=== PATIENT | male | born 1955 | race Caucasian/White ===

== ENCOUNTER 2024-08-24 07:31 | Day surgery (SDC) | payer MEDICARE, SELFPAY ==
[2024-08-24 08:14] VITALS: BP 153/80; PULSE 75; RESP 12; TEMP 36.1; O2SAT 94
--- NOTE | 2024-08-24 08:57 | PM.HP.1 ---
History of Present Illness History of Present Illness Date Patient Seen: 08/24/24 Time Patient Seen: 08:58 Chief complaint: Colonoscopy Narrative: 68-year-old male here for screening colonoscopy. Last colonoscopy 10 years ago normal. No family history of colon cancer. No abdominal concerns. [facility] Family History (Updated 02/06/17 @ 00:00 by Conversion Provider) Brother Testicular cancer Brother Prostate cancer Father Age: 97 Cancer Mother Hypertension Stroke Social History Smoking Status: Never smoker alcohol intake: current Meds Home Medications and Allergies Home Medications Medication Instructions Recorded Confirmed Type Fish Oil 1,000 mg PO QDAY ##2 08/16/11 08/24/24 History MULTIVITAMIN (MULTIPLE VITAMINS) 1 tab PO QDAY ##0 08/16/11 08/24/24 History sodium,potassium,mag sulfates 17.5 See Rx Instructions PO .COMPLEX 07/16/24 Rx gram-3.13 gram-1.6 gram oral soln #354 mL (Suprep Bowel Prep Kit) lisinopril 20 mg tablet 20 mg PO DAILY 08/24/24 08/24/24 History Allergies Allergy/AdvReac Type Severity Reaction Status Date / Time No Known Allergies Allergy Uncoded 08/24/24 08:07 Exam Vital Signs (past 8 hours): - 08/24/24 08:14 Temperature 96.9 F L Pulse Rate 75 Respiratory Rate 12 Blood Pressure 153/80 H Pulse Oximetry 94 Oxygen Delivery Method Room Air Oxygen Delivery Method Room Air Narrative Exam Narrative: General adult man alert oriented no acute distress Chest nonlabored respiration Extremities warm well perfused Assessment & Plan Assessment & Plan narrative: The patient requires colorectal screening and colonoscopy is recommended. Technical details were discussed. Risks, benefits, alternatives explained. Risks including but not limited to myocardial infarction, aspiration, bleeding, pain, missed lesion, incomplete examination, need for further radiographic studies, intestinal injury, and need for major abdominal surgery were discussed. All questions were answered to their satisfaction, and they are in agreement with this plan. Time-Based Coding :: [TOTAL MINUTES] spent with patient and on the chart (including review of chart, obtaining history, exam, reviewing outside data, placing orders, documenting exam and treatment plan, and counseling patient) on [DATE].
[2024-08-24 09:33] VITALS: BP 113/85; PULSE 84; RESP 18; TEMP 36.4; O2SAT 97
--- NOTE | 2024-08-24 09:34 | P.OP.COLON_ITS ---
Operative Date/Time/Diagnoses Date of procedure: 08/24/24 Time of procedure: 09:34 Pre-op diagnosis: Colorectal screening Procedure & Clinicians Study performed: Screening colonoscopy Same procedure as scheduled: Yes Indications: Colorectal screening Surgeon: Jas Zhou Procedure Notes Procedure in detail: The history and physical was performed/updated and the patient is ASA class is 2. The procedure was discussed in detail with the patient. Potential risks co mplications including infection, bleeding, missed diagnosis, perforation, need for surgery, and were explained. Their questions were answered and informed consent was obtained. Patient was brought to the procedure room and placed standard monitoring equipment. The patient's vital signs were monitored continuously throughout the entire procedure. Prior to starting time-out was performed. The patient was placed in the left lateral recumbent position. Procedural sedation was administered by anesthesia. Examination began with a thorough inspection of the perianal area there was no evidence of fissures, fistulae, external hemorrhoids or cutaneous malignancy. The colonoscopy scope was then placed into the anal canal and was advanced to the cecum, which was identified by the ileocecal valve, the appendiceal orifice and the confluence of the taenia. The scope was then slowly withdrawn examining colon thoroughly in all directions, irrigating it of any residual stool. The scope was retroflexed within the rectum The patient tolerated the procedure well. They will be discharged once criteria are met. The prep was of good/excellent quality. The withdrawl time was 7 minutes. FINDINGS * Internal hemorrhoids otherwise unremarkable colonoscopy Specimen(s): none sent Impression: Hemorrhoids Post-procedure Recommendations: High fiber diet Plan for aftercare: No need for further colonoscopy unless symptomatic Disposition: same day surgery
[2024-08-24 09:36] VITALS: BP 129/90; PULSE 77; RESP 16; O2SAT 98
[2024-08-24 09:41] VITALS: BP 113/82; PULSE 73; RESP 15; TEMP 36.6; O2SAT 98
[2024-08-24 09:44] VITALS: BP 114/82; PULSE 71; RESP 17; O2SAT 98
== END 2024-08-24 10:13 | disposition home or self-care (01) ==
PROVIDERS: PCP Family Medicine; Referring Provider Surgery; Visit Provider Surgery
PROC: 0DJD8ZZ Inspection of Lower Intestinal Tract, Via Natural or Artificial Opening Endoscopic (ICD-10-PCS; CPT 45378; principal; 2024-08-24 08:45)
DX: Z12.11 Encounter for screening for malignant neoplasm of colon (principal); K64.8 Other hemorrhoids
CPT/HCPCS: G0121; J2704